=== PATIENT | female | born 1990 | race Caucasian/White ===

== ENCOUNTER 2018-07-14 04:34 | Inpatient (IN) | payer MEDICAID ==
[~2018-07-14] VITALS: Ht 160 cm; Wt 95.5 kg
[2018-07-14 04:58] VITALS: BP 134/76
[2018-07-14] MEDS ORDERED: MEPERIDINE/PF 50 MG/ML IM PRN (06:10)
[2018-07-14] MEDS ORDERED: PROMETHAZINE 25 MG/ML, 1ML ONE (06:10)
[2018-07-14] MEDS ORDERED: MEPERIDINE/PF 100 MG/ML ONE (06:10)
[2018-07-14] MEDS ORDERED: PROMETHAZINE 25 MG/ML, 1ML IM ONE (06:10)
[2018-07-14] MEDS ORDERED: CEFAZOLIN 1,000 MG ONE (07:12)
[2018-07-14] MEDS ORDERED: OXYTOCIN 10 UNITS/ML, 1ML ONE (07:12)
[2018-07-14] MEDS ORDERED: FENTANYL PF 100 MCG/2ML ONE ×2 (07:12→08:29)
[2018-07-14] MEDS ORDERED: OXYTOCIN 30U/ 0.9% NaCL 500ML 500 ML IV ONE (07:54)
[2018-07-14] MEDS ORDERED: FENTANYL PF 100 MCG/2ML IVPush PRN (08:00)
[2018-07-14] MEDS ORDERED: ONDANSETRON 2MG/ML, 2ML IVPush PRN ×2 (08:00→09:30)
[2018-07-14] MEDS ORDERED: ACYC-114 PO (08:06)
[2018-07-14] MEDS ORDERED: PREN1TAB60 PO (08:06)
[2018-07-14] MEDS: LACTATED RINGERS 1,000 ML IV SCH ×2 (08:08→08:15)
[2018-07-14] MEDS ORDERED: FENTANYL/BUPIV./NS/PF 250 ML EPIDCONT SCH ×2 (08:08→09:10)
[2018-07-14] MEDS ORDERED: CALCIUM CARBONATE 500 MG TAB.CHEW ONE (08:20)
[2018-07-14] MEDS ORDERED: METOCLOPRAMIDE 5 MG/ML, 2ML ONE (08:20)
[2018-07-14] MEDS ORDERED: FENTANYL PF 500 MCG, BUPIVACAINE/PF 0.5%, 30ML 62.5 ML in SODIUM CHLORIDE 0.9% 177.5 ML EPIDCONT SCH (08:30)
[2018-07-14] MEDS ORDERED: CALCIUM CARBONATE 500 MG TAB.CHEW PO PRN ×2 (08:30→15:00)
[2018-07-14] MEDS ORDERED: METOCLOPRAMIDE 5 MG/ML, 2ML IVPush PRN (08:30)
[2018-07-14] MEDS ORDERED: BUPIVACAINE 0.25% ONE (08:52)
[2018-07-14 08:57] LABS: BASOPHILS # (AUTO) 0.01 x10^3/uL (0-0.1); BASOPHILS % (AUTO) 0 % (0-1); EOSINOPHILS # (AUTO) 0.03 x10^3/uL (0-0.4); EOSINOPHILS % (AUTO) 0 % (1-7); LYMPHOCYTES # (AUTO) 1.22 x10^3/uL (1-3.4); LYMPHOCYTES % (AUTO) 9 % (22-44); MD NO; MEAN CORPUSCULAR HGB CONC 32.2 g/dL (32.4-35.8); MEAN CORPUSCULAR VOLUME 77.7 fL (80-100); MEAN PLATELET VOLUME 8.5 fL (7.4-10.4); MONOCYTES # (AUTO) 0.59 x10^3/uL (0.2-0.8); MONOCYTES % (AUTO) 4 % (2-9); NEUTROPHILS % (AUTO) 87 % (42-75); PLATELET COUNT 212 x10^3/uL (130-400); RED BLOOD COUNT 4.25 x10^6/uL (3.82-5.3); RED CELL DISTRIBUTION WIDTH 14.7 % (9.6-15.2)
[2018-07-14] MEDS ORDERED: LACTATED RINGERS 1,000 ML IV SCH (09:10)
[2018-07-14] MEDS ORDERED: LIDOCAINE/PF 1.5%-EPI 1:200K, 30ML ONE (09:20)
[2018-07-14] MEDS ORDERED: DIPHENHYDRAMINE 50 MG/ML, 1ML IVPush PRN (09:30)
[2018-07-14] MEDS ORDERED: NALOXONE 0.4 MG/ML, 1ML IVPush PRN (09:30)
[2018-07-14] MEDS ORDERED: EPHEDRINE 50 MG/ML, 1ML IVPush PRN (09:30)
[2018-07-14] MEDS ORDERED: LACTATED RINGERS 1,000 ML IVBOLUS PRN (09:30)
[2018-07-14] MEDS ORDERED: OXYTOCIN 30U/ 0.9% NaCL 500ML 500 ML ONE ×2 (10:51→15:11)
[2018-07-14] MEDS ORDERED: MISOPROSTOL 200 MCG TABLET ONE (10:52)
[2018-07-14] MEDS ORDERED: LIDOCAINE 1%, 50ML ONE (10:52)
[2018-07-14] MEDS ORDERED: NEWBORN KIT ONE (10:55)
[2018-07-14] MEDS ORDERED: EPHEDRINE 50 MG/ML, 1ML ONE (11:27)
[2018-07-14] MEDS ORDERED: BISACODYL 10 MG SUPP PR PRN (15:00)
[2018-07-14] MEDS ORDERED: MEASLES,MUMPS&RUBELLA VACC/PF 0.5 ML SQ PRN (15:00)
[2018-07-14] MEDS ORDERED: ONDANSETRON 2MG/ML, 2ML IV PRN (15:00)
[2018-07-14] MEDS ORDERED: RHOGAM FROM BLOOD BANK 1 NOTE EA IM/IV ONE (15:00)
[2018-07-14] MEDS ORDERED: METOCLOPRAMIDE 5 MG/ML, 2ML IV PRN (15:00)
[2018-07-14] MEDS ORDERED: GLYCERIN ADULT SUPP PR PRN (15:00)
[2018-07-14] MEDS ORDERED: MISOPROSTOL 200 MCG TABLET PR PRN (15:00)
[2018-07-14] MEDS ORDERED: METHYLERGONOVINE 0.2 MG/ML IM PRN (15:00)
[2018-07-14] MEDS ORDERED: DIPH,PERTUSS(ACELL),TET VAC/PF NC IM-VACC PRN (15:00)
[2018-07-14] MEDS ORDERED: OXYcodone/APAP 5/325MG TABLET PO PRN (15:00)
[2018-07-14] MEDS ORDERED: MAGNESIUM HYDROXIDE 8%, 30ML UDC PO PRN (15:00)
[2018-07-14] MEDS ORDERED: ACETAMINOPHEN 325 MG TABLET PO PRN ×3 (15:00)
[2018-07-14] MEDS: OXYTOCIN 30U/ 0.9% NaCL 500ML 500 ML IV SCH (15:12)
[2018-07-14] MEDS ORDERED: IBUPROFEN 600 MG TABLET ONE (15:37)
[2018-07-14] MEDS: IBUPROFEN 600 MG TABLET PO PRN (15:38)
[2018-07-14 17:30] VITALS: BP 110/65
[2018-07-14 20:01] VITALS: BP 93/49
[2018-07-14] MEDS: DOCUSATE 100 MG CAPSULE PO PRN (20:29)
[2018-07-14] MEDS: OXYcodone/APAP 5/325MG TABLET PO PRN (20:29)
[2018-07-14 21:00] VITALS: BP 121/80
[2018-07-14 23:30] VITALS: BP 118/74
[2018-07-15] MEDS: IBUPROFEN 600 MG TABLET PO PRN ×3 (00:20→13:27)
[2018-07-15] MEDS: OXYcodone/APAP 5/325MG TABLET PO PRN ×2 (00:20→05:09)
[2018-07-15] MEDS: OXYTOCIN 30U/ 0.9% NaCL 500ML 500 ML IV SCH ×2 (00:48→10:48)
[2018-07-15 00:55] LABS: BASOPHILS # (AUTO) 0.06 x10^3/uL (0-0.1); BASOPHILS % (AUTO) 1 % (0-1); EOSINOPHILS # (AUTO) 0.06 x10^3/uL (0-0.4); EOSINOPHILS % (AUTO) 0 % (1-7); LYMPHOCYTES # (AUTO) 1.87 x10^3/uL (1-3.4); LYMPHOCYTES % (AUTO) 13 % (22-44); MD NO; MEAN CORPUSCULAR HEMOGLOBIN 25.5 pg (27.0-34.8); MEAN CORPUSCULAR HGB CONC 32.9 g/dL (32.4-35.8); MEAN CORPUSCULAR VOLUME 77.6 fL (80-100); MEAN PLATELET VOLUME 8.9 fL (7.4-10.4); MONOCYTES # (AUTO) 1.09 x10^3/uL (0.2-0.8); MONOCYTES % (AUTO) 8 % (2-9); NEUTROPHILS # (AUTO) 11.43 x10^3/uL (1.8-6.8); NEUTROPHILS % (AUTO) 79 % (42-75); PLATELET COUNT 224 x10^3/uL (130-400); RED BLOOD COUNT 4.38 x10^6/uL (3.82-5.3)
[2018-07-15 03:08] VITALS: BP 116/76
[2018-07-15 07:20] VITALS: BP 116/76
[2018-07-15] MEDS: DOCUSATE 100 MG CAPSULE PO PRN (07:38)
[2018-07-15] MEDS ORDERED: OXYC-302 PO (08:09)
[2018-07-15] MEDS ORDERED: IBUP-1222 PO (08:09)
[2018-07-15] MEDS ORDERED: FLUC150T PO (08:10)
[2018-07-15] MEDS ORDERED: PRENATAL VIT/IRON/FA 1 EACH TABLET PO SCH (09:00)
[2018-07-15 12:10] VITALS: BP 122/76
== END 2018-07-15 15:53 | disposition home or self-care (01) | DRG 775 ==
LOC: LDOP 04:34 → LDIP 06:42 → OBSVTOIN 06:42 → 2NW 17:28
PROVIDERS: ADMIT Obstetrics & Gynecology; ATTEND Obstetrics & Gynecology
PROC: 10E0XZZ Delivery of Products of Conception, External Approach (ICD-10-PCS; principal; 2018-07-14)
PROC: 10907ZC Drainage of Amniotic Fluid, Therapeutic from Products of Conception, Via Natural or Artificial Opening (ICD-10-PCS; 2018-07-14)
PROC: 3E0R3BZ Introduction of Anesthetic Agent into Spinal Canal, Percutaneous Approach (ICD-10-PCS; 2018-07-14)
PROC: 00HU33Z Insertion of Infusion Device into Spinal Canal, Percutaneous Approach (ICD-10-PCS; 2018-07-14)
DX: O34.211 Maternal care for low transverse scar from previous cesarean delivery (principal); Z3A.37 37 weeks gestation of pregnancy; O71.89 Other specified obstetric trauma; Z37.0 Single live birth; Z88.5 Allergy status to narcotic agent
CPT/HCPCS: 36415; 85025; 86850; 86900; J0690; J2175; J2550; J3010; J3490; J2590; J2765; J7050; J7120